=== PATIENT | female | born 1930 | race Caucasian/White ===

== ENCOUNTER 2016-08-09 15:29 | Inpatient (IN) | payer MEDICARE, OTHER ==
--- NOTE | ~2016-08-09 | OP ---
Record Of Operation [facility] [address] [place]. [address] NAME: ARLETTE INMAN : 32 STATUS : ADM IN PAT#: [id number] AGE: 86 ADM/REG DATE : 08/09/16 MR#: [id number] REPORT SERV DATE: 08/10/16 DICTATED BY: VITALIY HERMAN DATE: 08/10/16 REPORT STATUS : Draft TRANSCRIBED BY: MODL DATE: 08/10/16 DATE OF PROCEDURE: 08/10/2016 PROCEDURE: Left femoral vein triple lumen catheter. DESCRIPTION: Emergent central line access was needed since the patient was in cardiogenic shock. The left groin was clean. Ultrasound guidance was used to identify the artery and vein. Area was prepped and draped and sterile technique was maintained throughout the entire procedure. Using a modified Seldinger technique, we placed a left femoral vein triple lumen catheter without difficulty. Got back dark nonpulsatile blood flow. All ports flushed. Line sutured. I attempted a left femoral arterial line and got access on my first stick, but the guidewire got stuck and would not thread, so I had to abort this procedure. It was right after this where we had a pulse check up in her carotid and we did not have any pulse and had to resume CPR. Please see Code Blue note. WILEY/JONATHAN Vitaliy Herman DO / [id number] CC: DO JACOB Park PAUL DANIEL
--- NOTE | ~2016-08-09 | OP ---
Record Of Counts include 234 beds at the [facility] [address] [place] [address] NAME: ARLETTE INMAN : 32 STATUS : ADM IN PAT#: [id number] AGE: 86 ADM/REG DATE : 08/09/16 MR#: [id number] REPORT SERV DATE: 08/10/16 DICTATED BY: VITALIY HERMAN DATE: 08/10/16 REPORT STATUS : Draft TRANSCRIBED BY: MODL DATE: 08/10/16 DATE OF PROCEDURE: 08/10/2016 PROCEDURE: Endotracheal intubation. DESCRIPTION: Intubation occurred in the setting of a cardiac arrest. We got return of spontaneous circulation with CPR. After which, I used a size 8 ET tube and a MAC 4 blade and inserted the ET tube through her vocal cords without any difficulty. This was used without the need for any sedation. We did not have an O2 saturation because we were unable to picket labor union one during the Code Blue. We had good color change with bagging, and immediately, we got pulmonary hemorrhage coming up through the ET tube. This eventually resolved on its own and was seemingly self-limited. No complications with the procedure itself. CEP/MODL Vitaliy Herman DO / [id number] CC: DO JACOB Park PAUL DANIEL
--- NOTE | ~2016-08-09 | DS ---
Discharge Summary [facility] [address] [place]. [address] NAME: ARLETTE INMAN : 32 STATUS : ADM IN PAT#: [id number] AGE: 86 ADM/REG DATE : 08/09/16 MR#: [id number] REPORT SERV DATE: 08/10/16 DICTATED BY: Trang GEIGER DATE: 08/10/16 REPORT STATUS : Draft TRANSCRIBED BY: MODL DATE: 08/10/16 ADMISSION DATE: 08/09/2016 DISCHARGE DATE: REPORT TITLE: Summary. DATE OF : 08/10/2016. BODY AFTER REPORT TITLE: DIAGNOSES AT THE TIME OF DEMISE: 1. Right hip fracture. 2. Chronic atrial fibrillation, Coumadin toxicity, chronic kidney disease, chronic diastolic heart failure, and hypertension. CONSULTS: Orthopedics and Critical Care Medicine. PROCEDURES: Oral intubation, placement of triple-lumen catheter for IV access, and ACLS protocol. BRIEF HOSPITAL COURSE: An 86-year-old female patient, who fell at home and sustained femoral neck fracture on the right, was admitted to the Hospitalist Service with plans for surgical correction of her injuries as soon as possible. The patient is on chronic Coumadin and was Coumadin toxic with an INR of 4.9. Arrangements were made to transfuse with FFP to correct her INR to a level that would allow for surgery. Around 4 a.m., the patient had a progressive decline with increasing respiratory distress and decreasing mental status. Data was collected that showed development of lactic acidosis. The patient ultimately had a code blue with PEA arrest and successfully resuscitated via ACLS protocol and transferred to the ICU. A few hours later, she again had an asystolic arrest, was unable to be resuscitated, and was ultimately pronounced at 8:25 by the SOFA BACK UPHOLSTERER. [place] [facility] were notified. There was no autopsy requested. Family is aware of advances. I reviewed them personally from the time she was admitted through the documentation regarding her arrest, as well as up-to-date x-ray and lab values. It is likely the patient had a cardiac event sometime in the highway design engineer that led to her demise basically from the stress of the underlying hip fracture. The patient also had complications of bleeding post-intubation related to her Coumadin toxicity that probably worsened her pulmonary status also contributed to her decline. The certificate will be completed by myself and forwarded. The stone gluer service is working with the family to make arrangements for and disposition of the body. Please notify Dr. Juan Manuel Khanna, the patient's primary care provider and provide him with a copy of this dictation. Discharge Summary [address] [place]. [address] NAME: ARLETTE INMAN : 32 STATUS : ADM IN PAT#: [id number] AGE: 86 ADM/REG DATE : 08/09/16 MR#: [id number] REPORT SERV DATE: 08/10/16 DICTATED BY: Trang GEIGER DATE: 08/10/16 REPORT STATUS : Draft TRANSCRIBED BY: JONATHAN DATE: 08/10/16 [facility]/JONATHAN Trang Geiger M.D. / [id number] CC: DO JACOB Park PAUL DANIEL
--- NOTE | ~2016-08-09 | HP ---
History And Physical [facility] [id number] [place]. [address] NAME: ARLETTE INMAN : 32 STATUS : ADM IN [facility]#: [id number] AGE: 86 ADM/REG DATE : 08/09/16 MR#: [id number] REPORT SERV DATE: 08/09/16 DICTATED BY: Trang GEIGER DATE: 08/09/16 REPORT STATUS : Draft TRANSCRIBED BY: MODL DATE: 08/09/16 DATE OF ADMISSION: 08/09/2016 HISTORY: 86-year-old female patient, currently living independently, very supportive family, lost her balance and fell in the kitchen this morning injuring her right hip. ED evaluation shows right femoral neck fracture. The patient now being admitted to the Hospitalist Service for further evaluation and treatment. Of note, the patient denies any recent chest pain or shortness of breath. No recent worsening edema or dyspnea on exertion. No melena or bright red blood per rectum. PAST MEDICAL HISTORY: Significant for chronic diastolic heart failure, chronic atrial fibrillation, on Jantoven, chronic kidney disease stage 3, hypertension. SOCIAL HISTORY: As mentioned above. Good family support. No alcohol, tobacco, or drugs. Currently living independently. REVIEW OF SYSTEMS: As per HPI. All other systems reviewed and are negative. FAMILY HISTORY: Positive for heart disease. PHYSICAL EXAMINATION: VITAL SIGNS: Temp is 97.7, heart rate 90 and irregular, respirations 20, blood pressure 164/98. GENERAL: It is a well-developed, elderly female patient, currently a bit sedated, status post morphine in the emergency room, was able to answer questions regarding her injury and her history. HEENT: Pupils equal, round, reactive to light. Extraocular muscles are intact. Oropharynx is clear. NECK: Without JVD or bruit. LUNGS: Clear. Normal chest expansion. HEART: Irregular. Soft 1/6 murmur, left lower sternal border. ABDOMEN: Obese, soft. Positive bowel sounds. No organomegaly or mass. EXTREMITIES: No edema. Pulses are +2. SKIN: Without rash or ecchymotic area. Joints, diffuse osteoarthritic change without synovitis or effusion. NEURO: Cranial nerves grossly intact. Motor exam was nonfocal excluding right leg. Gait was not assessed. GENITOURINARY: Exam is significant for Devi catheter. RECTAL: Deferred. AVAILABLE DATA: White count is 13.7, hemoglobin 15.9, hematocrit 47.8, platelets 193. Sodium 143, potassium is 4.0, chloride 104, bicarb 29, BUN 30, creatinine 1.43, glucose 103, INR is 4.9. EKG shows chronic atrial fibrillation. IMPRESSION: 86-year-old female patient with right femoral neck fracture. History And Physical [address] [address] NAME: ARLETTE INMAN : 32 STATUS : ADM IN [facility]#: [id number] AGE: 86 ADM/REG DATE : 08/09/16 MR#: [id number] REPORT SERV DATE: 08/09/16 DICTATED BY: Trang GEIGER DATE: 08/09/16 REPORT STATUS : Draft TRANSCRIBED BY: JONATHAN DATE: 08/09/16 PLAN: Admit to Ortho and Telemetry, Attending, Dr. Zach Geiger. Consult to Dr. Iqbal, Orthopedics. Electrolyte replacement guidelines. Routine vitals. Diet as tolerated. N.p.o. after midnight. O2 of 2 L nasal cannula. Follow up lab work to include CBC, BMP, magnesium, INR. Reasonable pain and nausea control will be offered. The patient will not need DVT prophylaxis as she is on chronic Coumadin. We will type and cross for 4 units of FFP and give 2 tonight and if INR is greater than 2, we will give additional 2 in the morning. We will also give 20 of Lasix IV x1 given her history of heart failure. Use p.r.n. hydralazine if blood pressure is greater than 170/90. Home medications that will be held include losartan to afford postop acute kidney injury, potassium as well as Coumadin and magnesium. Further recommendations for treatment pending observation of her clinical course and review of postop data as well as input from Dr. Iqbal of Orthopedics. [facility]/JONATHAN Trang Geiger M.D. / [phone]
--- NOTE | ~2016-08-09 | OP ---
Record Of Operation [facility] [address] [place]. [address] NAME: ARLETTE INMAN : 32 STATUS : ADM IN PAT#: [id number] AGE: 86 ADM/REG DATE : 08/09/16 MR#: [id number] REPORT SERV DATE: 08/10/16 DICTATED BY: VITALIY HERMAN DATE: 08/10/16 REPORT STATUS : Draft TRANSCRIBED BY: MODL DATE: 08/10/16 DATE OF PROCEDURE: 08/10/2016 PROCEDURE: Code blue. DESCRIPTION: A Krish Marion was called at [address] just before 5:00 a.m. Rhythm strips appear that this is a PEA cardiac arrest. When I arrived on the scene, CPR was in progress and one of epinephrine had already been given. The patient came in as a right hip fracture. Apparently, the patient had been having respiratory distress during the night. At one point, she was on a 100% non-rebreather looking at the notes. We did get return of spontaneous circulation on the floor, and then, the patient was subsequently intubated, which is dictated under a separate report. She was then transferred to the ICU for further intensive care treatment and monitoring. Daughter was present outside the room during the code, and she was updated. In the ICU, we found out that her pH was 6.9, and she had elevated lactic acidosis. She had not been making any urine, and her creatinine had been climbing. I put a bedside echo probe on her, which showed very poor ejection fraction with my estimates being 20% or less, with 20% being very optimistic. I did not see any large pericardial effusions based on my image acquisition. We had proceeded to give three amps of bicarbonate and wanted to start a bicarbonate drip. Blood pressure was dropping, so we were giving IV fluid bolus and started Levophed. I placed an emergent central line in her groin, which is also dictated under a separate report. Towards the end of the procedure, we did a pulse check since we had not picked up a blood pressure and found that she had no pulse. We resumed CPR. After discussing with the daughter who is the oldest daughter, she felt that she would never want to go through this type of a hospital stay, would never want to go to a care home, or have an outcome like this. She requested that we stop all aggressive treatment and her comfort measures. When I came back to the patient, the patient had a weak pulse after we stopped CPR. The patient will be made DNR comfort care, and family will be allowed to come visit the patient. WILEY/MODL Vitaliy Herman DO / [id number] CC: DO JACOB Park PAUL DANIEL
[2016-08-09 13:55] LABS: BASOPHILS 0.1 %; BASOPHILS ABSOLUTE 0.01 10/3/uL (0.0-0.16); EOSINOPHILS 0.4 %; EOSINOPHILS ABSOLUTE 0.05 10/3/uL (0.0-0.53); HEMOGLOBIN 15.9 g/dL (12.0-16.0); IMMATURE GRANULOCYTES 1.4 %; IMMATURE GRANULOCYTES ABSOLUTE 0.19 10/3/uL (0.0-0.11); LYMPHOCYTES 10.2 %; LYMPHOCYTES ABSOLUTE 1.39 10/3/uL (0.67-4.30); MEAN CORPUS HGB CONC 33.3 g/dL (32.0-36.0); MEAN CORPUSCULAR HEMOGLOB 34.3 pg (26.0-34.0); MEAN PLATELET VOLUME 9.2 fL (9.2-13.0); MONOCYTES ABSOLUTE 0.69 10/3/uL (0.21-1.20); NEUTROPHILS 82.9 %; NEUTROPHILS ABSOLUTE 11.35 10/3/uL (2.02-8.40); PLATELET COUNT 193 10/3/uL (150-400); RBC DISTRIBUTION WIDTH 14.6 % (12.0-16.0)
[2016-08-09 13:58] LABS: ER CBC TAT 0 Hrs 07 Mins; HEMATOCRIT 47.8 % (36.0-48.0); MANUAL DIFF NO %; RED CELL COUNT 4.64 10/6/uL (4.0-5.6); WHITE BLOOD CELLS 13.7 10/3/uL (4.5-10.5)
[2016-08-09 14:03] LABS: PARTIAL THROMBO TIME 46.4 SEC (22.5-37.2)
[2016-08-09 14:04] LABS: INTERNATIONAL NORMAL RATI 4.9 UNITS (-)
[2016-08-09 14:05] LABS: CALCIUM, SERUM 9.1 MG/DL (8.5-10.4); CHLORIDE, SERUM 104 MMOL/L (96-112); CO2 (CARBON DIOXIDE) 29 MMOL/L (24-34); CREATININE 1.43 MG/DL (0.55-1.02); GFR AFRICAN AMERICAN 39 ML/MIN (>=60); GFR NON AFRICAN AMERICAN 33 ML/MIN (>=60); PROTIME (NOT ORD) 45.5 SEC (12.0-14.5); SODIUM, SERUM 143 MMOL/L (135-148)
[2016-08-09 14:12] LABS: BUN (BLOOD UREA NITROGEN) 30 MG/DL (6-23); GLUCOSE, SERUM 103 MG/DL (60-99)
[~2016-08-09 15:29] MED LIST: ACET500CAP PO; B-COMPLEX/1 PO; BL FLAX SEED1000 MG PO; C2 PO; CENTRUM PO; COZ50 PO; CYANO1000T PO; DEMA10T PO; ETODOLAC ER400 MG OR; FLAXSEED OIL PO; HAIR/SKIN/NAILS PO; HCTZ25B PO; JANTOVEN2 MG PO; JANTOVEN2.5 MG PO; JANTOVEN3 MG PO; KDUR20 PO; KLOR-CON M2020 MEQ PO; L40 PO; LOP100 PO; MAGNESIUM GLUCONATE PO; MAGNESIUM PO; MAGOX4 PO; MUCINEX600 MG PO; MULTIPLE VIT PO; MULTIVITAMI1 PO; NORCO1 TA1 PO; NORV5 PO; PEP20 PO; PREDNISOL5 PO; PRILO PO; PROAIR HFA INH; PROSOM1 MG PO; SURBEX/ZINC1 TAB PO; TEKTUR150 PO; VITAMIN D1000 UNI1 PO; VITAMIN D400 UNI1 PO; VITC500 PO
[2016-08-10 01:56] LABS: BE (BASE EXCESS) -8.2 MEQ/L (0 +/- 2.5); CARBOXYHEMOGLOBIN 0.6 % (0-3); DEVICE NRB; HCO3 (ACTUAL BICARBONATE) 15.7 MEQ/L (23-27); HEMOBLOGIN CONTENT 15.8 G/DL (12-16); INSTRUMENT SERIAL # 8083; METHEMOGLOBIN 0.2 % (0-3); O2 CONTENT 21.8 VOL% (18-24); OPERATOR ID 16503; PCO2 (CO2 TENSION) 29 MMHG (35-45); PO2 (O2 TENSION) 128 MMHG (79-93); SAMPLE Arterial; pH 7.35 (7.37-7.43)
[2016-08-10 04:35] LABS: INTERNATIONAL NORMAL RATI 3.2 UNITS (-)
[2016-08-10 04:36] LABS: PARTIAL THROMBO TIME 45.3 SEC (22.5-37.2)
[2016-08-10 04:37] LABS: HEMATOCRIT 50.8 % (36.0-48.0); NUCLEATED RED BLOOD CELLS 1.1 /100WBC (0-0); PLATELET COUNT 158 10/3/uL (150-400); RED CELL COUNT 4.71 10/6/uL (4.0-5.6)
[2016-08-10 04:40] LABS: MANUAL DIFF YES %; MEAN CORPUS HGB CONC 31.5 g/dL (32.0-36.0); MEAN CORPUSCULAR VOLUME 107.9 fL (80-100); WHITE BLOOD CELLS 21.1 10/3/uL (4.5-10.5)
[2016-08-10 04:46] LABS: PROTIME (NOT ORD) 32.7 SEC (12.0-14.5)
[2016-08-10 04:51] LABS: ALBUMIN 3.5 G/DL (3.5-5.0); ALKALINE PHOSPHATASE 93 U/L (45-117); BUN (BLOOD UREA NITROGEN) 33 MG/DL (6-23); CALCIUM, SERUM 8.9 MG/DL (8.5-10.4); CHLORIDE, SERUM 102 MMOL/L (96-112); POTASSIUM, SERUM 4.6 MMOL/L (3.5-5.3); SGOT(AST) 270 U/L (5-40); SGPT(ALT) 166 U/L (5-65); SODIUM, SERUM 141 MMOL/L (135-148); TOTAL PROTEIN 6.6 G/DL (6.0-8.5)
[2016-08-10 04:57] LABS: A/G RATIO 1.1 (0.7-1.9); CO2 (CARBON DIOXIDE) 19 MMOL/L (24-34); CREATININE 2.52 MG/DL (0.55-1.02); GFR AFRICAN AMERICAN 19 ML/MIN (>=60); GFR NON AFRICAN AMERICAN 17 ML/MIN (>=60); GLOBULIN 3.1 G/DL (2.5-4.1); GLUCOSE, SERUM 166 MG/DL (60-99); TOTAL BILIRUBIN 1.9 MG/DL (0-1.2)
[2016-08-10 04:58] LABS: TROPONIN I 1.24 NG/ML (<0.05)
[2016-08-10 05:27] LABS: ALLENS TEST Pos; BE (BASE EXCESS) -22.1 MEQ/L (0 +/- 2.5); CARBOXYHEMOGLOBIN 0.5 % (0-3); HCO3 (ACTUAL BICARBONATE) 10.8 MEQ/L (23-27); HEMOBLOGIN CONTENT 15.3 G/DL (12-16); INSTRUMENT SERIAL # 8083; METHEMOGLOBIN 0.5 % (0-3); MODE CMV; O2 CONTENT 20.1 VOL% (18-24); OPERATOR ID 17370; PCO2 (CO2 TENSION) 54 MMHG (35-45); PO2 (O2 TENSION) 109 MMHG (79-93); SAMPLE Arterial; TIDAL VOLUME 450 ML; pH 6.92 (7.37-7.43)
[2016-08-10 06:00] LABS: BAND NEUTROPHILS 3 %; IMMATURE GRANS ABSOLUTE (CALC) 0.84 10/3/uL (0.0-0.11); LYMPHOCYTES 20 %; LYMPHOCYTES ABSOLUTE (CALC) 4.22 10/3/uL (0.67-4.30); MACROCYTES 1+ (5-10/OIF) (0-5/OIF); METAMYELOCYTES 3 %; MONOCYTES 4 %; MONOCYTES ABSOLUTE (CALC) 0.84 10/3/uL (0.21-1.20); MYELOCYTES 1 %; NEUTROPHILS ABSOLUTE (CALC) 15.19 10/3/uL (2.02-8.40); PLATELET ESTIMATE ADQ (ADEQUATE); SEGMENTED NEUTROPHIL (0) 69 %; TOTAL NUCLEATED CELLS 100
[2016-08-10 06:28] LABS: BE (BASE EXCESS) -4.9 MEQ/L (0 +/- 2.5); CARBOXYHEMOGLOBIN 0.3 % (0-3); HCO3 (ACTUAL BICARBONATE) 24.3 MEQ/L (23-27); INSTRUMENT SERIAL # 8083; METHEMOGLOBIN 1.7 % (0-3); MODE CMV; O2 CONTENT 3.5 VOL% (18-24); OPERATOR ID 17370; PCO2 (CO2 TENSION) 65 MMHG (35-45); PO2 (O2 TENSION) 19 MMHG (79-93); SAMPLE Arterial; TIDAL VOLUME 450 ML; pH 7.19 (7.37-7.43)
== END 2016-08-10 11:50 | disposition expired | DRG 535 ==
LOC: ER 15:29 → 1SO 15:40 → MIC 08-10 05:19
PROVIDERS: Hospitalist; Internal Medicine; Internal Medicine Pulmonary Disease
DX: S72.001A Fracture of unspecified part of neck of right femur, initial encounter for closed fracture (principal); R57.0 Cardiogenic shock; J96.01 Acute respiratory failure with hypoxia; J96.02 Acute respiratory failure with hypercapnia; E87.2 Acidosis; I50.43 Acute on chronic combined systolic (congestive) and diastolic (congestive) heart failure; N18.3 Chronic kidney disease, stage 3 (moderate); D68.32 Hemorrhagic disorder due to extrinsic circulating anticoagulants; I46.9 Cardiac arrest, cause unspecified; I13.0 Hypertensive heart and chronic kidney disease with heart failure and stage 1 through stage 4 chronic kidney disease, or unspecified chronic kidney disease; I48.2 Chronic atrial fibrillation; Z79.84 Long term (current) use of oral hypoglycemic drugs; Z79.899 Other long term (current) drug therapy; Z82.49 Family history of ischemic heart disease and other diseases of the circulatory system; Z79.01 Long term (current) use of anticoagulants; W18.39XA Other fall on same level, initial encounter; Z91.81 History of falling; Y92.010 Kitchen of single-family (private) house as the place of occurrence of the external cause; Z51.5 Encounter for palliative care; Z66 Do not resuscitate; T45.515A Adverse effect of anticoagulants, initial encounter
CPT/HCPCS: 36415; 36430; 70450; 71010; 72170; 73502-RT; 80048; 80053; 82140; 82805; 82962; 83605; 83735; 83880; 84484; 85025; 85610; 85730; 86850; 86900; 86901; 93005; 94002; 94003; 96374; 96375; 99285; A9270-GY; C1894; C9132; J1940; J2405; J3430; P9059